=== PATIENT | female | born 1995 | race Caucasian/White ===

== ENCOUNTER 2019-06-28 17:04 | Emergency (ER) | payer OTHER, SELFPAY ==
[2019-06-28 17:15] VITALS: BP 117/79; PULSE 88; RESP 20; TEMP 36.8; O2SAT 100
--- NOTE | 2019-06-28 17:37 | ED.URI ---
HPI - URI/Sore Throat General Chief Complaint: Upper Respiratory Infection Stated Complaint: CONGESTION/SOB Source: patient Mode of arrival: ambulatory Limitations: no limitations History of Present Illness HPI Narrative: 23-year-old female presents to urgent care with complaints of chest congestion, dry cough, body aches and intermittent wheezing for the past 3 days. Patient reports that she had a fever 2 to 3 days ago but that has since resolved. Patient denies chills, nausea, vomiting, diarrhea, sore throat or ear pain. Patient denies sick contacts. Patient denies recent travel. Patient has been taking oupx-trd-dxxmfmr TheraFlu with minimal relief. MD elicited complaint: cough Onset (ago): day(s) (3) Consistency: constant Able to tolerate fluids by mouth: Yes Exacerbating factors: nothing Relieving factors: nothing Related Data Home Medications Medication Instructions Recorded Confirmed Control Pills 06/28/19 Allergies Allergy/AdvReac Type Severity Reaction Status Date / Time amoxicillin Allergy Rash Verified 06/28/19 17:22 Penicillins Allergy Rash Verified 06/28/19 17:22 sulfamethoxazole Allergy Hives Verified 06/28/19 17:21 [From Bactrim] trimethoprim [From Bactrim] Allergy Hives Verified 06/28/19 17:21 Review of Systems Review of Systems: All systems reviewed & are unremarkable except as noted in HPI and below Constitutional: Constitutional: Denies chills and Denies fever(s) ENT: Denies dysphagia, Denies dizziness, Denies epistaxis and Denies sore throat Cardiovascular: Cardiovascular: Denies chest pain, Denies rapid heart rate and Denies radiating jaw, neck or arm pain Respiratory: Respiratory: Reports chest congestion, Reports cough, Denies dyspnea and Reports wheezing Gastrointestinal: Gastrointestinal: Denies constipation, Denies diarrhea, Denies nausea and Denies vomiting Neurologic: Denies dizziness, Denies syncope, Denies headache(s) and Denies weakness PMF Social History Social History (Updated 06/28/19 @ 17:38 by Vanita Gonzalez APN) Smoking status: Never smoker Exam Const: General: healthy appearing, no acute distress and alert Orientation/consciousness: patient oriented x3 Limitations: no limitations HENMT: Head: normal to inspection Ears: external ears normal and TM's normal bilaterally General nose exam: Normal nares present Face and sinus: sinuses nontender Mouth: Yes Normal oral and palatal mucosa present and Yes moist mucous membranes Throat: posterior oropharynx normal and uvula midline Neck: Neck: normal visual inspection Resp: Effort & Inspection: normal respiratory effort and not labored Auscultation: clear to auscultation bilaterally, no crackles, no rales, no rhonchi, no wheezes and lung sounds not diminished Cardio: Rate: regular rate Rhythm: regular rhythm Heart sounds: no murmurs Skin: General skin exam: normal color Rashes: no rashes Neuro: General: patient oriented x3, moves all extremities and no meningeal signs Extrem: General: normal to inspection Psych: Appearance: grossly normal Mental Status: mental status grossly normal Affect: normal affect Attitude: cooperative Course Vital Signs Vital signs: Vital Signs Temperature 36.8 C 06/28/19 17:15 Pulse Rate 88 06/28/19 17:15 Respiratory Rate 06/28/19 17:15 Blood Pressure 117/79 06/28/19 17:15 Pulse Oximetry 100 06/28/19 17:15 Temperature 36.8 C 06/28/19 17:15 Pulse Rate 88 06/28/19 17:15 Respiratory Rate 20 06/28/19 17:15 Blood Pressure 117/79 06/28/19 17:15 Pulse Oximetry 100 06/28/19 17:15 MDM - URI/Sore Throat MDM Narrative Medical decision making narrative: Patient agrees to take medications as prescribed. Patient agrees to follow-up with primary care provider if symptoms not improved. Patient agrees to proceed to the emergency room if symptoms worsen Lab Data Labs: Influenza A Screen Negative Reference
== END 2019-06-28 17:48 | disposition home or self-care (01) ==
PROVIDERS: Emergency Provider Nurse Practitioner Family
DX: J40 Bronchitis, not specified as acute or chronic (principal)
CPT/HCPCS: 87804; 99213; G0463

== ENCOUNTER 2022-05-26 11:05 | Outpatient (CLI) | payer OTHER, SELFPAY ==
[2022-05-26 12:36] LABS: Basophils Percent Auto 0.3 % (0.2-1.2); Eosinophils Absolute Auto 0.1 K/mm3 (0-0.3); Eosinophils Percent Auto 0.4 % (0-4.4); Hematocrit 38.8 % (37.0-47.0); Hemoglobin 13.1 g/dL (12.0-15.0); Immature Granulocyte Absolute 0.07 K/mm3 (0.00-0.031); Immature Granulocyte Percent A 0.5 % (0-0.5); Lymphocytes Absolute Auto 1.24 K/mm3 (0.9-3.2); Lymphocytes Percent Auto 9.1 % (18.3-44.2); Mean Corpuscular HGB Conc 33.8 g/dl (32-36); Mean Corpuscular Hemoglobin 28.9 pg (26-34); Mean Corpuscular Volume 85.5 fl (80-100); Mean Platelet Volume 9.2 fl (7.4-10.4); Monocytes Absolute Auto 0.6 K/mm3 (0.1-0.6); Monocytes Percent Auto 4.5 % (2.6-8.5); Neutrophils Absolute Auto 11.7 K/mm3 (1.3-6.7); Neutrophils Percent Auto 85.2 % (45.5-73.1); Platelet Count Result 292 k/mm3 (150-375); Red Blood Count 4.54 M/mm3 (4.2-5.4); Red Cell Distribution Width 13.7 % (11.5-14.5); White Blood Count 13.7 K/mm3 (4.5-10.0)
[2022-05-26 12:46] LABS: Glucose 1 Hour PP 50gm Dose 78 mg/dL
[2022-05-26 13:27] LABS: HIV 1/2 Ab P24 Ag Result Negative (Negative)
[2022-05-26 13:53] LABS: Hepatitis B Surface Antigen Negative (Negative)
== END 2022-05-26 11:06 | disposition home or self-care (01) ==
PROVIDERS: PCP Obstetrics & Gynecology; Visit Provider Obstetrics & Gynecology
DX: N94.89 Other specified conditions associated with female genital organs and menstrual cycle (principal); Z34.90 Encounter for supervision of normal pregnancy, unspecified, unspecified trimester
CPT/HCPCS: 36415; 82947; 85025; 86703; 87086; 87088; 87340; G0432

== ENCOUNTER 2022-08-07 14:21 | Outpatient (RCR) | payer OTHER, MEDICAID, SELFPAY ==
--- NOTE | ~2022-08-07 | US_ITS ---
EXAMINATION: US OB BPP wo non-stress DATE: 08/07/2022 15:41 INDICATION: Biophysical profile, third trimester TECHNIQUE: Real-time pelvic ultrasound was performed. The interpreting radiologist was not present fo r the study. COMPARISON: None. FINDINGS: There is a single living fetus in vertex presentation. The placenta is anterior. heart rate is 148 beats per minute (bpm). Biophysical profile performed by the technologist: breathing (30 sec sustained breathing in 30 minutes): 2 out of 2 movement (3 gross body movements in 30 minutes): 2 out of 2 tone (one episode of tezjysp-aqicpyqii-rjgrrjx limb movement): 2 out of 2 Amniotic fluid pocket (2 cm): 2 out of 2 Total score: 8 out of 8 IMPRESSION: 1. Single living fetus in vertex presentation. 2. Biophysical profile 8 out of 8. Reviewed, dictated and finalized at location L.
[2022-08-07 15:07] VITALS: BP 116/83; PULSE 76
--- NOTE | 2022-08-07 15:39 | PC.NURSE ---
Dr. Lauren informed NST is reactive and BPP 12/09. OK to discharge to home.
== END 2022-09-29 18:27 | disposition home or self-care (01) ==
LOC: ANHOBOP 14:21
PROVIDERS: PCP Family Medicine Sports Medicine; Visit Provider Obstetrics & Gynecology
DX: O48.0 Post-term pregnancy (principal); Z3A.40 40 weeks gestation of pregnancy
CPT/HCPCS: 59025; 76819

== ENCOUNTER 2022-08-10 17:22 | Inpatient (IN) | payer OTHER, MEDICAID, SELFPAY ==
[2022-08-10] VITALS (98 sets, daily range): BP systolic 104–141; BP diastolic 51–87; PULSE 64–109; TEMP 36.4–38.1; O2SAT 98–100; BMI 27.8
[2022-08-10 18:01] LABS: Basophils Absolute Auto 0.1 K/mm3 (0.0-0.1); Basophils Percent Auto 0.3 % (0.2-1.2); Eosinophils Percent Auto 0.1 % (0-4.4); Hematocrit 44.3 % (37.0-47.0); Immature Granulocyte Absolute 0.12 K/mm3 (0.00-0.031); Immature Granulocyte Percent A 0.7 % (0-0.5); Lymphocytes Absolute Auto 1.19 K/mm3 (0.9-3.2); Lymphocytes Percent Auto 6.8 % (18.3-44.2); Mean Corpuscular HGB Conc 33.9 g/dl (32-36); Mean Corpuscular Hemoglobin 28.2 pg (26-34); Mean Corpuscular Volume 83.3 fl (80-100); Mean Platelet Volume 10.5 fl (7.4-10.4); Monocytes Absolute Auto 0.7 K/mm3 (0.1-0.6); Monocytes Percent Auto 4.2 % (2.6-8.5); Neutrophils Absolute Auto 15.4 K/mm3 (1.3-6.7); Neutrophils Percent Auto 87.9 % (45.5-73.1); Platelet Count Result 307 k/mm3 (150-375); Red Blood Count 5.32 M/mm3 (4.2-5.4); Red Cell Distribution Width 14.2 % (11.5-14.5); White Blood Count 17.5 K/mm3 (4.5-10.0)
[2022-08-10] MEDS: LACTATED RINGERS 1,000 ML 125 ML IV CONT ×2 (18:11→18:56)
[2022-08-10] MEDS: ceFAZolin 2 GM/D5W 50 ML 2 GM/50 ML BAG IVPB (18:11)
--- NOTE | 2022-08-10 18:35 | WPDANESEPP ---
Anes - Eval Pre Procedure Procedure: labor epidural Date/Time: 08/10/22 18:35 Surgeon: britni Preop Diagnosis: pain during labor Pre Op Diagnosis: Labor Patient Data Age: 26 Gender: F Height: Weight: Last Vital Signs Temp 36.4 C L 08/10/22 18:01 Pulse 76 08/10/22 18:31 BP 141/84 H 08/10/22 18:31 Pulse Ox 100 08/10/22 18:33 Allergies Allergy/AdvReac Type Severity Reaction Status Date / Time amoxicillin Allergy Rash Verified 08/04/22 09:15 latex Allergy Rash Verified 08/04/22 09:15 Penicillins Allergy Rash Verified 08/04/22 09:15 sulfamethoxazole Allergy Hives Verified 08/04/22 09:15 [From Bactrim] trimethoprim [From Bactrim] Allergy Hives Verified 08/04/22 09:15 Home Medications Medication Instructions Recorded Confirmed Type albuterol sulfate 90 mcg/actuation 1 inh inhalation Q4H 05/19/22 08/10/22 History aerosol inhaler (ProAir HFA) prenat.vits,carlos,muq-wszy-sajuo 1 tablet PO HS 07/11/22 08/10/22 History Laboratory Tests 08/10/22 08/10/22 17:53 17:53 WBC 17.5 K/mm3 H K/mm3 (4.5-10.0) RBC 5.32 M/mm3 M/mm3 (4.2-5.4) Hgb 15.0 g/dL g/dL (12.0-15.0) Hct 44.3 % % (37.0-47.0) MCV 83.3 fl fl (80-100) MCH 28.2 pg pg (26-34) MCHC 33.9 g/dl g/dl (32-36) RDW 14.2 % % (11.5-14.5) Plt Count 307 k/mm3 k/mm3 (150-375) MPV 10.5 fl H fl (7.4-10.4) Immature Gran % (Auto) 0.7 % H % (0-0.5) Neut % (Auto) 87.9 % H % (45.5-73.1) Lymph % (Auto) 6.8 % L % (18.3-44.2) [place] % (Auto) 4.2 % % (2.6-8.5) Eos % (Auto) 0.1 % % (0-4.4) Baso % (Auto) 0.3 % % (0.2-1.2) Lymph # (Auto) 1.19 K/mm3 K/mm3 (0.9-3.2) [place] # (Auto) 0.7 K/mm3 H K/mm3 (0.1-0.6) Eos # (Auto) 0.0 K/mm3 K/mm3 (0-0.3) Baso # (Auto) 0.1 K/mm3 K/mm3 (0.0-0.1) Abs Immat Gran (auto) 0.12 K/mm3 H K/mm3 (0.00-0.031) Absolute Neuts (auto) 15.4 K/mm3 H K/mm3 (1.3-6.7) Absolute Nucleated RBC 0.0 K/mm3 K/mm3 (0.0-0.012) Nucleated RBC % 0.0 % % (0.0-0.2) RPR Pending Patient hx anesthesia problems: none Family hx anesthesia problems: none Results Review: All pre-operative results and documents have been reviewed as part of the pre-operative evaluation. [facility] Past Medical History Medical History Abnormal Pap smear of cervix 11/26/2017 Ascus +Hpv Anxiety rx meds Seizures (05/27/20) started 05/27/2020 no meds Suppression of menstruation Family History Family History Grandparent Esophageal cancer maternal grandmother Social History Social History Smoking status: Never smoker Alcohol intake: former Alcohol use details: ocassional Substance use: never Substance use type: marijuana Other substance usage details: 1 x week Last use: 05/2021 Living arrangements: other Additional living arrangements comments: boyfreind Occupation/Education: occupation Additional occupation/education comments: orthodontic tech Gender identity (if verbalized by the patient): Female Sexual Orientation (if Verbalized by the Patient): Straight or Heterosexual Spiritual care concerns: No Exam Day of Procedure 08/10/22 18:35
--- NOTE | 2022-08-10 19:01 | LDADM ---
This patient, Sarina Wetzel, was admitted to Labor/Delivery/Recovery 105 on 08/10/22 at 17:22. Plans for labor, pain management and were discussed with patient. Patient/family oriented to hospital policies and general routines including ID bracelet, bed and alarms, visiting hours, pain management, procedures, bathroom and other care routines, personal items, smoking policy, room service/diet and guest tray routines, infant security routines, and visiting hours. Patient/Family are encouraged to report perceived risks to care and to ask questions if they do not understand what they are told or what they should do. See OBIX for further documentation.
[2022-08-10] MEDS: ceFAZolin 1 GM/NS 50 ML 1 GM/50 ML BAG IVPB (23:55)
[2022-08-11] VITALS (131 sets, daily range): BP systolic 76–153; BP diastolic 41–109; PULSE 18–163; RESP 16–18; TEMP 36.4–38.1; O2SAT 78–100
--- NOTE | 2022-08-11 05:44 | WPDHPUPDATE1 ---
History and Physical Update Update Date/Time: 08/11/22 05:44 26 yo G1 who presents in labor. Reports regular contractions. Denies any leakage of fluid or vaginal bleeding. History and Physical has been reviewed, including an updated exam of the patient. There are NO changes in the patient's condition. Risks, benefits, and alternatives have been discussed and questions answered. Patient agrees to proceed with procedure. A/P: admit to L&D routine admission orders Rh+ GBS +, abs in labor continuous EFM expectant management
--- NOTE | 2022-08-11 05:45 | P.PCNOB_ITS ---
OB - Delivery Note Procedure Procedure: Patient pushed for a spontaneous vaginal delivery. Pt was noted to have a loose nuchal cord that was reduce on the perineum. The fetus was delivered atraumatically and placed on the maternal abdomen. The cord was clamped and cut after 1 minute of life. The cord was double clamped and cut and a segment of cord was collected for cord gases. Cord blood was collected for blood type and Coomb's testing. The placenta delivered spontaneously and was noted to be intact. The perineum was inspected and there were no lacerations noted. The uterus was firm and good hemostasis was noted. The patient and fetus were stable in the delivery room. Delivery monitor: External FHT Route of delivery: Episiotomy description: None Specimen: No Quantitative Blood Loss (ml): 300 Anesthesia type: Epidural Disposition: Floor () Complications: No immediate complications [place] Baby Date of : 08/11/22 Time of : 05:33 Weeks of gestation at delivery: 40 Infant gender: Female presentation: vertex position: Right Occiput Anterior Placenta delivery description: Spontaneous Cord Vessel Description: 3 Vessels and Nuchal Cord score one minute: 8 score five minutes: 9 AMG Delivery Billing Delivery Delivery: Delivery Charge
[2022-08-11] MEDS: OXYTOCIN 30 UNITS/NS 500 ML 30 UNITS/500 ML BAG 125 UNITS IV CONT (06:14)
[2022-08-11] MEDS: IBUPROFEN 600 MG TABLET PO ×2 (06:50→16:34)
[2022-08-11 08:18] LABS: Rapid Plasma Reagin Non-Reactive (NonReactive)
[2022-08-11] MEDS: ACETAMINOPHEN 325 MG TABLET 650 MG PO ×2 (08:27→20:21)
[2022-08-11] MEDS: WITCH HAZEL 40 PADS 1 PAD TOPICAL (08:28)
[2022-08-11] MEDS: DOCUSATE SODIUM 100 MG CAPSULE PO (08:28)
[2022-08-11] MEDS: MULTIVIT/MIN/PREN/FOL AC/IRON TABLET 1 TAB PO (08:28)
[2022-08-11] MEDS: LANOLIN (LANSINOH) 7.5 GM CREAM 1 APPLIC TOPICAL (08:28)
[2022-08-11] MEDS: BENZOCAINE 20% AER SPR (*SP) 56 GM CAN 1 SPRAY TOPICAL (08:28)
--- NOTE | 2022-08-11 10:26 | PC.NURSE ---
Patient transferred to post room #286 via ( W/C ). Support person present. Oriented to unit, room, information board, rooming in, admission packet and security measures. Patient verbalizes understanding.
[2022-08-12] MEDS: IBUPROFEN 600 MG TABLET PO (00:54)
[2022-08-12 05:07] VITALS: BP 119/76; PULSE 63; RESP 16; TEMP 36.6; O2SAT 99
[2022-08-12 05:24] LABS: Hematocrit 35.5 % (37.0-47.0); Hemoglobin 11.5 g/dL (12.0-15.0)
--- NOTE | 2022-08-12 07:09 | PM.OBDSVD ---
DS: Admitting Diagnosis Discharge Date 08/12/22 Admitting Diagnosis Intrauterine at term DS: Discharge Diagnosis Discharge Diagnosis (1) : Code(s): Z34.90 - Encounter for supervision of normal , unspecified, unspecified trimester Status: Acute OB - DS: Summary OB Procedures : None OB Procedures Intrapartum: Spontaneous Vag Delivery OB Procedures: : None Status at Discharge Functional status at discharge: independent ambulation Overall status at discharge: patient is back to baseline Time Spent with Patient Time attestation: Total time spent providing and/or coordinating discharge services: Time spent: Less than 30 minutes Exam Const: General: comfortable and no acute distress Resp: Effort & Inspection: normal respiratory effort Auscultation: clear to auscultation bilaterally Cardio: Rate: regular rate GI: GI Palp: Yes Soft to palpation Auscultation: normal bowel sounds Other: Fundus firm below umbilicus Psych: Appearance: grossly normal Mental Status: mental status grossly normal Affect: normal affect DS: Data Data Completed and Pending Labs on day of discharge: Labs from last 24 hours 08/12/22 08/10/22 05:15 17:53 Hgb 11.5 L D Hct 35.5 L RPR Non-reactive Discharge Plan Discharge Discharging Clinician: Fred Lauren Patient Disposition: Home, Self-Care Activity: as tolerated and pelvic rest Diet: regular Patient Instructions: Antibiotic Form, Vaginal Delivery (DC) Stand Alone Forms: General Discharge Information Follow-up/Referrals: Carlyle Beatty MD [Physician] - Discharge Medications: New ibuprofen 600 mg tablet 600 mg PO Q6H PRN (Reason: pain) Qty: 30 0RF acetaminophen 500 mg tablet 500 mg PO Q6H PRN (Reason: pain) Qty: 30 0RF Continued albuterol sulfate [ProAir HFA] 90 mcg/actuation HFA aerosol inhaler 1 inh inhalation Q4H #2 Tablet 1 tablet PO HS Date of admission: 08/10/22 17:22 Primary Care Provider: Barbara,Shahid Johnson Admitting Provider: Carlyle Beatty Attending physician on admission: Carlyle Beatty Condition: Stable
[2022-08-12 08:15] VITALS: BP 123/75; PULSE 63; RESP 16; TEMP 36.9; O2SAT 99
[2022-08-12] MEDS: DOCUSATE SODIUM 100 MG CAPSULE PO (08:47)
[2022-08-12] MEDS: MULTIVIT/MIN/PREN/FOL AC/IRON TABLET 1 TAB PO (08:48)
[2022-08-12] MEDS: TETANUS,DIPHTHERIA,AC PERTUSSIS ADULT (0.5 ML) BOOSTRIX IM (08:48)
[2022-08-12] MEDS: MEASLES,MUMPS,RUBELLA VACCINE 0.5 ML VIAL SUB-Q (12:55)
--- NOTE | 2022-08-12 16:00 | PC.NURSE ---
[phone] Introductions were made, then consulted with patient to assess needs related to . Mother led the conversation with her?plans to feed?her infant and the?experience so far. is not in the room at this time. Resources provided for inpatient and outpatient services with name written on the white board. Mother voiced understanding of information and will call if there is a request for assistance. Primary RN brings into the room and helps prepare for skin to skin. [phone] Mother works well with her with encouragement and education. Encouraged understanding of the benefits of skin to skin (demonstrating unwrapping infant and placing upright on her chest), stimulating with massage touch, changing positions to encourage wakefulness, how to watch for early feeding cues, responsive feeding, feeding on demand (aiming for 8-12 times in 24 hours, about every 2-3 hours), milk production, building/maintaining a milk supply, duration of feeding, signs of adequate intake/output and how to record on the feeding sheet. Reviewed positioning and ear, shoulder, hip alignment, supporting the breast to facilitate a deep latch, asymmetrical latch (off-center), leading with the chin with a big, open, wide gape and body close to mother. latched optimally to the left breast in cross cradle position, then mother switched to cradle with minimal assistance from LC. Education given to mother of how to visualize suck/swallow ratios and listen for drinking at the breast. was able to maintain latch without discomfort to mother. Nipple care reviewed with optimal latch and good positioning. Reminding mother of comfort measures of healing with a warm and wet washcloth to rinse breast, then leave open to air-dry as needed. Reviewed good handwashing when or touching the breast/nipples to prevent infection. Resources used to facilitate learning were used with the mom and baby guide. Mother voiced understanding of skin to skin, stimulating with massage touch, responsive feedings, hand expressed colostrum, talking to infant to encourage if it has been 2 -2.5 hours since the start of the last , to call if infant does not latch, or if there is discomfort with . Resources provided for inpatient/outpatient with business card and the mom/baby guide. Mother voiced understanding of information, demonstrated learning and will call if there is a request for assistance. Reported to primary RN.
--- NOTE | 2022-08-12 17:43 | PC.NURSE ---
1200 Patient viewed the discharge video Mother & Baby Care, The First Two Weeks . Patient was given the opportunity and encouraged to ask questions. Patient verbalized understanding of information shared and has been given the mother/baby guide for home reference.
[2022-08-14 09:30] VITALS: BP 119/76; PULSE 78; RESP 18; TEMP 36.8; O2SAT 99
== END 2022-08-12 14:20 | disposition home or self-care (01) | DRG 806 ==
LOC: ANHOB2 08-12 14:12 → ANHLDR 08-13 08:16 → ANHOB2 08-13 08:16
PROVIDERS: Admitting Provider Student in an Organized Health Care Education/Training Program; PCP Family Medicine Sports Medicine; Visit Provider Student in an Organized Health Care Education/Training Program
DX: O99.824 Streptococcus B carrier state complicating childbirth (principal); O75.2 Pyrexia during labor, not elsewhere classified; Z37.0 Single live birth; O77.0 Labor and delivery complicated by meconium in amniotic fluid; O69.81X0 Labor and delivery complicated by cord around neck, without compression, not applicable or unspecified; Z3A.40 40 weeks gestation of pregnancy
CPT/HCPCS: 36415; 85014; 85018; 85025; 86592; 86850; 86900; 86901; 90710; 90715; A9270; J0131; J0690; J2590; J2795; J7120

== ENCOUNTER 2023-12-30 13:34 | Outpatient (CLI) | payer OTHER, SELFPAY ==
[2023-12-30 14:30] LABS: Hematocrit 38.9 % (37.0-47.0); Hemoglobin 13.6 g/dL (12.0-15.0); Mean Corpuscular Hemoglobin 30.2 pg (26-34); Mean Corpuscular Volume 86.3 fl (80-100); Mean Platelet Volume 9.1 fl (7.4-10.4); Platelet Count Result 268 k/mm3 (150-375); Red Blood Count 4.51 M/mm3 (4.2-5.4); Red Cell Distribution Width 15.3 % (11.5-14.5); White Blood Count 8.8 K/mm3 (4.5-10.0)
[2023-12-30 14:46] LABS: Band Neutrophils Percent 2 % (0-6); Lymphocytes Absolute Manual 1.14 K/mm3 (1.1-4.5); Monocytes Absolute Manual 0.08 K/mm3 (0.1-0.90); Monocytes Percent Manual 1 % (3-9); Neutrophils Absolute Manual 7.56 K/mm3 (1.7-7.2); Neutrophils Percent Manual 84 % (46-73); Platelet Estimate Adequate (Adequate); Total Cells Counted 100
[2023-12-30 14:47] LABS: Anisocytosis 2+; Schistocytes None Seen
[2023-12-30 15:06] LABS: HIV 1/2 Ab P24 Ag Result Negative (Negative)
[2023-12-30 15:41] LABS: Hepatitis B Surface Antigen Negative (Negative); Rubella IgG Antibody 63.8 IU/ML
[2023-12-31 10:49] LABS: Rapid Plasma Reagin Non-Reactive (NonReactive)
[2023-12-31 12:23] LABS: Varicella IgG Antibody <135.00 index
[2023-12-31 13:29] LABS: CMV IgG Antibody <0.60 U/mL
== END 2023-12-30 13:35 | disposition home or self-care (01) ==
LOC: ANHLAB 13:35
PROVIDERS: PCP Family Medicine Sports Medicine; Visit Provider Obstetrics & Gynecology
DX: N91.2 Amenorrhea, unspecified (principal)
CPT/HCPCS: 36415; 84702; 85025; 86592; 86644; 86703; 86747; 86762; 86787; 86850; 86900; 86901; 87086; 87340; G0432

== ENCOUNTER 2024-04-18 12:57 | Outpatient (CLI) | payer OTHER, SELFPAY ==
[2024-04-18 14:31] LABS: Basophils Absolute Auto 0.1 K/mm3 (0.0-0.1); Basophils Percent Auto 0.4 % (0.2-1.2); Eosinophils Absolute Auto 0.1 K/mm3 (0-0.3); Eosinophils Percent Auto 0.8 % (0-4.4); Hematocrit 37.8 % (37.0-47.0); Hemoglobin 12.8 g/dL (12.0-15.0); Immature Granulocyte Absolute 0.13 K/mm3 (0.00-0.031); Immature Granulocyte Percent A 1.1 % (0-0.5); Lymphocytes Percent Auto 11.6 % (18.3-44.2); Mean Corpuscular HGB Conc 33.9 g/dl (32-36); Mean Corpuscular Hemoglobin 30.1 pg (26-34); Mean Corpuscular Volume 88.9 fl (80-100); Mean Platelet Volume 9.5 fl (7.4-10.4); Monocytes Absolute Auto 0.7 K/mm3 (0.1-0.6); Monocytes Percent Auto 5.4 % (2.6-8.5); Neutrophils Absolute Auto 9.7 K/mm3 (1.3-6.7); Neutrophils Percent Auto 80.7 % (45.5-73.1); Platelet Count Result 274 k/mm3 (150-375); Red Blood Count 4.25 M/mm3 (4.2-5.4); Red Cell Distribution Width 13.2 % (11.5-14.5); White Blood Count 12.1 K/mm3 (4.5-10.0)
[2024-04-18 14:41] LABS: Glucose 1 Hour PP 50gm Dose 115 mg/dL
[2024-04-18 15:20] LABS: HIV 1/2 Ab P24 Ag Result Negative (Negative)
== END 2024-04-18 12:58 | disposition home or self-care (01) ==
LOC: ANHLAB 12:59
PROVIDERS: PCP Family Medicine Sports Medicine; Visit Provider Obstetrics & Gynecology
DX: Z34.90 Encounter for supervision of normal pregnancy, unspecified, unspecified trimester (principal)
CPT/HCPCS: 36415; 82947; 85025; 86703; G0432

== ENCOUNTER 2024-06-09 15:44 | Inpatient (IN) | payer OTHER, SELFPAY ==
[2024-06-09] VITALS (69 sets, daily range): BP systolic 80–126; BP diastolic 49–95; PULSE 31–146; RESP 16; TEMP 36.6–37.6; O2SAT 71–100; BMI 28.2
--- OUTSIDE RECORDS SUMMARY | 2024-06-09 16:05 | XMS_ITS | Referral Summary ---
Author Organization [address] Address [address] [place] [address] Care Team Providers Care Jacquard Card Cutter Name Role Phone Shahid Ruiz MD Primary Care Provider [phone] Allergies Active Allergy Reactions Criticality Noted Date Comments Sulfamethoxazole-Trimethoprim Hives,Rash Medium 2022 Penicillins Hives,Rash Medium 08/28/2022 Medications vit 27-kfex-oktmh-dh a 27 mg iron- 1 mg-150 mg combo pack Take by mouth Active acetaminophen (TYLENOL) 500 mg tablet Take by mouth every 6 (six) hours as needed 08/12/2022 Active Active Problems No known active problems Social History Tobacco Use Types Packs/Day Years Used Date Smoking Tobacco: Never Smokeless Tobacco: Never Personal Safety Answer Date Recorded Getting School Help Needed Not on file 07/04 Comments Unknown Sex and Gender Information Value Date Recorded Sex Assigned at Not on file Legal Sex Female 5:19 PM CDT Gender Identity Not on file Sexual Orientation Not on file Last Filed Vital Signs Vital Sign Reading Time Taken Comments Blood Pressure 106/68 02/24/2023 8:16 AM CDT Pulse 121 02/24/2023 8:16 AM CDT Temperature 38.1 C (100.5 F) 02/24/2023 8:16 AM CDT Respiratory Rate 16 02/24/2023 8:16 AM CDT Oxygen Saturation 97% 02/24/2023 8:16 AM CDT Inhaled Oxygen Concentration - - Weight 60.1 kg (132 lb 9.6 oz) 02/24/2023 8:16 A M CDT Height 160 cm (5' 3 ) 02/24/2023 8:16 AM CDT Body Mass Index 23.49 02/24/2023 8:16 AM CDT Plan of Treatment Not on file Insurance [facility] Care Teams Jacquard Card Cutter Relationship Specialty Start Date End Date Shahid Ruiz MD [address] [place] [address] PCP - General Family Medicine 08/28/22
--- OUTSIDE RECORDS SUMMARY | 2024-06-09 16:05 | XMS_ITS | Clinical Summary ---
Author Organization [address] Address [address] [place] [address] Care Team Providers Care Station Manager Name Role Phone Shahid Ruiz MD Primary Care Provider [phone] Allergies Active Allergy Reactions Criticality Noted Date Comments Sulfamethoxazole-Trimethoprim Hives,Rash Medium 2022 Penicillins Hives,Rash Medium 08/28/2022 Medications vit 68-okzm-tiqua-dh a 27 mg iron- 1 mg-150 mg [...] on file Sexual Orientation Not on file Obstetrics History Last Filed Vital Signs Vital Sign Reading [...] 02/24/2023 8:16 AM CDT Plan of Treatment Health Maintenance Due Date Last Done Comments Cervical Cancer Screening 1996 Depression Screening 1996 Hepatitis C Screening 1996 Varicella Vaccines (1 of 2 - 13+ 2-dose series) 2009 Hepatitis B Screening 2014 Regular Well Visit/Exam 18-64 2014 Influenza Vaccine (#1) 2024 DTaP/Tdap/Td Vaccine (2 - Td or Tdap) 08/12/2032 08/12/2022 HPV Vaccines Aged Out No longer eligi ble based on patient's age to complete this topic Pneumococcal vaccine <65 Aged Out No longer eligible based on patient's age to complete this topic Insurance [facility] Care Teams Station Manager Relationship Specialty Start Date End Date Shahid Ruiz MD [address] [place] [address] PCP - General Family Medicine 08/28/22
[2024-06-09 16:18] LABS: Basophils Absolute Auto 0.1 K/mm3 (0.0-0.1); Basophils Percent Auto 0.4 % (0.2-1.2); Eosinophils Percent Auto 0.2 % (0-4.4); Hematocrit 42.5 % (37.0-47.0); Hemoglobin 14.5 g/dL (12.0-15.0); Immature Granulocyte Percent A 0.5 % (0-0.5); Lymphocytes Absolute Auto 1.95 K/mm3 (0.9-3.2); Lymphocytes Percent Auto 10.1 % (18.3-44.2); Mean Corpuscular HGB Conc 34.1 g/dl (32-36); Mean Corpuscular Hemoglobin 28.7 pg (26-34); Mean Corpuscular Volume 84.2 fl (80-100); Neutrophils Absolute Auto 16.2 K/mm3 (1.3-6.7); Neutrophils Percent Auto 83.8 % (45.5-73.1); Platelet Count Result 303 k/mm3 (150-375); Red Blood Count 5.05 M/mm3 (4.2-5.4); Red Cell Distribution Width 13.7 % (11.5-14.5); White Blood Count 19.3 K/mm3 (4.5-10.0)
[2024-06-09] MEDS: LACTATED RINGERS 1,000 ML 125 ML IV CONT ×2 (16:19→17:21)
--- NOTE | 2024-06-09 16:49 | P.PNAN_ITS ---
Anes - Initial Pre Proc Eval Procedure: labor epidural Date/Time: 06/09/24 16:49 Surgeon: Carlyle Beatty MD Pre Op Diagnosis: labor pain Pre Op Diagnosis: Active Labor Patient Data Age: 28 Gender: F Height: Weight: Last Vital Signs Temp 36.6 C 06/09/24 16:27 Pulse 92 06/09/24 16:48 BP 98/66 L 06/09/24 16:48 Pulse Ox 98 06/09/24 16:46 Allergies Allergy/AdvReac Type Severity Reaction Status Date / Time amoxicillin Allergy Rash Verified 06/08/24 13:38 latex Allergy Rash Verified 06/08/24 13:38 Penicillins Allergy Rash Verified 06/08/24 13:38 sulfamethoxazole (From Allergy Hives Verified 06/08/24 13:38 Bactrim) trimethoprim (From Bactrim) Allergy Hives Verified 06/08/24 13:38 Home Medications ?Medication ?Instructions ?Recorded ?Confirmed ?Type docosahexaenoic acid 200 mg 200 mg PO DAILY #90 caps 12/09/23 06/09/24 Rx capsule ( DHA) citalopram 20 mg tablet 20 mg PO DAILY #90 tabs 04/06/24 06/09/24 Rx RSV vac, preF A and preF B(PF) 120 0.5 ml IM ONCE #1 ea 05/03/24 06/08/24 Rx mcg/0.5 mL IM solution (Abrysvo (PF)) albuterol sulfate 90 mcg/actuation 1 puff inhalation Q4H PRN 05/03/24 06/09/24 Rx aerosol inhaler shortness of breath or wheezing #8.5 grams Laboratory Tests 06/09/24 16:12 WBC 19.3 H K/mm3 (4.5-10.0) RBC 5.05 M/mm3 (4.2-5.4) Hgb 14.5 g/dL (12.0-15.0) Hct 42.5 % (37.0-47.0) MCV 84.2 fl (80-100) MCH 28.7 pg (26-34) MCHC 34.1 g/dl (32-36) RDW 13.7 % (11.5-14.5) Plt Count 303 k/mm3 (150-375) MPV 10.0 fl (7.4-10.4) Immature Gran % (Auto) 0.5 % (0-0.5) Neut % (Auto) 83.8 H % (45.5-73.1) Lymph % (Auto) 10.1 L % (18.3-44.2) [place] % (Auto) 5.0 % (2.6-8.5) Eos % (Auto) 0.2 % (0-4.4) Baso % (Auto) 0.4 % (0.2-1.2) Lymph # (Auto) 1.95 K/mm3 (0.9-3.2) [place] # (Auto) 1.0 H K/mm3 (0.1-0.6) Eos # (Auto) 0.0 K/mm3 (0-0.3) Baso # (Auto) 0.1 K/mm3 (0.0-0.1) Abs Immat Gran (auto) 0.10 H K/mm3 (0.00-0.031) Absolute Neuts (auto) 16.2 H K/mm3 (1.3-6.7) Absolute Nucleated RBC 0.000 K/mm3 (0.0-0.012) Nucleated RBC % 0.0 % (0.0-0.2) RPR Pending HIV 1&2 Ab/P24 Ag 4thGn Pending Patient hx anesthesia problems: none Family hx anesthesia problems: none Results Review: All pre-operative results and documents have been reviewed as part of the pre- operative evaluation. [facility] Past Medical History Medical History Suppression of menstruation Seizures (05/27/20) started 05/27/2020 no meds Anxiety no meds Abnormal Pap smear of cervix 11/26/2017 Ascus +Hpv Family History Family History Grandparent Esophageal cancer maternal grandmother Mother Hypertension Social History Social History Smoking status: Never smoker Second hand tobacco smoke exposure: No Alcohol intake: former Alcohol use details: ocassional Substance use: former Substance use type: marijuana Other substance usage details: 1 x week Last use: 05/2021 Do You Feel Safe in your Home?: Yes Lack of Transportation: No Lack of Food: Never True Current Housing: I Have Housing Concerned About Future Housing: No Difficulty Paying Gas/Electric Bills: No Difficulty Paying for Meds: No Currently Unemployed: No Education: High School Diploma/GED Difficulty w/ Childcare or Family Care: No Living arrangements: with family Additional living arrangements comments: Occupation/Education: other Additional occupation/education comments: stay at home mom Gender identity (if verbalized by the patient): Female Sexual Orientation (if Verbalized by the Patient): Straight or Heterosexual Spiritual care concerns: No Anes - Eval Final PreProcedure Day of Procedure 06/09/24 16:49 Patient weight: normal Lungs: normal air movement Airway: Mallampati scale class 1 Neurological: alert and oriented ASA classification: II Anesthetic plan: proceed Anesthesia type and monitoring: regional epidural and standard monitoring Results Review: All pre-operative results and documents have been reviewed as part of the pre- operative evaluation. Informed Consent: The patient's anesthetic plan and its attendant risks and benefits were discussed with the patient/family/POA. Questions were solicited and answers provided to the satisfaction of the patient/family/POA.
--- NOTE | 2024-06-09 17:03 | LDADM ---
This patient, Sarina Wetzel, was admitted to Labor/Delivery/Recovery 106 on 06/09/24 at 15:44. Plans for labor, pain management and were discussed with patient. Patient/family oriented to hospital policies and general routines including ID bracelet, bed and alarms, visiting hours, pain management, procedures, bathroom and other care routines, personal items, smoking policy, room service/diet and guest tray routines, infant security routines, and visiting hours. Patient/Family are encouraged to report perceived risks to care and to ask questions if they do not understand what they are told or what they should do. See OBIX for further documentation.
[2024-06-09 17:07] LABS: HIV 1/2 Ab P24 Ag Result Negative (Negative)
[2024-06-09 17:18] LABS: Rapid Plasma Reagin Non-Reactive (NonReactive)
--- NOTE | 2024-06-09 18:15 | WPDHPUPDATE1 ---
History and Physical Update Update Date/Time: 06/09/24 18:15 History and Physical has been reviewed, including an updated exam of the patient. There are NO changes in the patient's condition. Risks, benefits, and alternatives have been discussed and questions answered. Patient agrees to proceed with procedure.
--- NOTE | 2024-06-09 18:15 | WPDOBADMIT ---
Obstetrics - Admit Note Admission Note: record reviewed. No pertinent additions to the history and/or any subsequent changes in the physical findings that are not consistent with the expected course of the were found. Additions to the history and/or subsequent changes in the physical findings follow. None.
--- NOTE | 2024-06-09 18:16 | PM.OBPRVD ---
OB - Vaginal Delivery Note Procedure Delivery date: 06/09/24 Intrapartal Events: Other ( meconium stained fluid) Induction method: None Delivery augmentation: Rupture of Membranes Delivery monitor: External FHT and External Uterine Route of delivery: Episiotomy description: None Laceration Description: None Specimen: Yes Quantitative Blood Loss (ml): 350 Anesthesia type: Epidural Disposition: Floor Complications: No immediate complications Narrative: Draped usual manner this procedure. Maternal expulsive efforts readily vertex occiput posterior position. Nuchal cord noted and reduced. Rest difficulty cord clamped, placenta delivered manually. Sweep the uterus revealed no retained membranes or pieces of placenta. Cervix vagina vulva were inspected with no lacerations or tears. there was some uterine atony which resolved with bimanual compression, Pitocin, Methergine. Immediate postop condition of mother and baby both excellent. Baby Gestational Age by Date: 39 gender: Female Weight (pounds): 7 Weight (ounces): 4 presentation: vertex position: Right Occiput Posterior Placenta delivery description: Manual Removal Cord Vessel Description: 3 Vessels, Nuchal Cord and Reduced score one minute: 8 score five minutes: 9
[2024-06-09] MEDS: OXYTOCIN 30 UNITS/NS 500 ML 30 UNITS/500 ML BAG 999 UNITS IV CONT (19:04)
[2024-06-09] MEDS: METHYLERGONOVINE MALEATE 0.2 MG/ML VIAL IM (19:19)
[2024-06-09] MEDS: OXYTOCIN 30 UNITS/NS 500 ML 30 UNITS/500 ML BAG 125 UNITS IV CONT (19:41)
[2024-06-09] MEDS: diphenhydrAMINE HCl INJ 50 MG/ML VIAL 25 MG IV PUSH (20:16)
[2024-06-09] MEDS: WITCH HAZEL 40 PADS 1 PAD TOPICAL (20:20)
[2024-06-09] MEDS: BENZOCAINE 20% AER SPR (*SP) 56 GM CAN 1 SPRAY TOPICAL (20:20)
[2024-06-09] MEDS: ACETAMINOPHEN 325 MG TABLET 650 MG PO (22:45)
[2024-06-09] MEDS: IBUPROFEN 600 MG TABLET PO (22:45)
--- NOTE | 2024-06-09 23:48 | PC.NURSE ---
2348- Pt admitted to room 280 at 2150. At 2330, temp 100.7 oral, this RN spoke with Dr. Kim, stated to monitor pt, give tylenol motrin (given at 2245), if temp reaches 101.0 to call back for further orders.
[2024-06-10 00:51] VITALS: BP 95/54; PULSE 71; RESP 14; TEMP 36.8; O2SAT 100
[2024-06-10] MEDS: DIBUCAINE 1% OINTMENT 30 GM TUBE 1 APPLIC TOPICAL (02:15)
[2024-06-10 05:06] VITALS: BP 106/69; PULSE 70; RESP 14; TEMP 37.3; O2SAT 100
[2024-06-10] MEDS: ACETAMINOPHEN 325 MG TABLET 650 MG PO ×3 (05:41→19:01)
[2024-06-10] MEDS: IBUPROFEN 600 MG TABLET PO ×3 (05:41→19:02)
[2024-06-10 06:02] LABS: Hematocrit 38.3 % (37.0-47.0); Hemoglobin 11.9 g/dL (12.0-15.0)
[2024-06-10] MEDS: MULTIVIT/MIN/PREN/FOL AC/IRON TABLET 1 TAB PO (08:50)
[2024-06-10] MEDS: CITALOPRAM HYDROBROMIDE 20 MG TABLET PO (08:50)
--- NOTE | 2024-06-10 09:30 | PC.NURSE ---
Introductions were made, then consulted with patient to assess needs related to . Discussed with mother her?plans to feed?her and the?experience so far. Baby has been latching okay but tends to be gaggy at the beginning of feeds. Mom is supplementing once to see if will have a wet diaper. Resources provided for inpatient and outpatient services with the feeding sheet, mom/baby guide and name/number written on the communication board. Mother voiced understanding of information and will call if there is a request for assistance. Reported to the Primary RN.
[2024-06-10 10:20] VITALS: BP 117/64; PULSE 64; RESP 18; TEMP 36.4; O2SAT 99
--- NOTE | 2024-06-10 10:41 | WPDANLDPN2 ---
Anes-Prog Note L&D Date/Time: 06/10/24 10:41 Comfortable throughout: labor and delivery Neuraxial method: epidural Epidural/Spinal procedure site: clean & non-tender Neuro status: Neuro function grossly intact. Cardiovascular status: normal Respiratory status: normal Airway patency: baseline Mental status: baseline Post-Op hydration status: normal Vital Signs: Last Vital Signs Temp 97.6 F 06/10/24 10:20 Pulse 64 06/10/24 10:20 Resp 18 06/10/24 10:20 BP 117/64 06/10/24 10:20 Pulse Ox 99 06/10/24 10:20 O2 Del Method Room Air 06/10/24 08:00 Pain score (VAS): 0/10 I/O: Intake & Output 06/09/24 06/10/24 06/10/24 23:59 07:59 15:59 Intake Total 1000 Output Total 350 Balance 650 Post-procedural complaints: none Patient feedback: Patient satisfied with anesthetic care.
--- NOTE | 2024-06-10 13:25 | PM.OBDSVD ---
DS: Admitting Diagnosis Discharge Date 06/11/2024 Admitting Diagnosis DS: Discharge Diagnosis Discharge Diagnosis (1) , delivered: Code(s): O80 - Encounter for full-term uncomplicated delivery Status: Acute OB - DS: Summary OB Procedures : None OB Procedures Intrapartum: Spontaneous Vag Delivery OB Procedures: : None Peripartum Data Laceration Description: None Episiotomy description: None Time Spent with Patient Time attestation: Total time spent providing and/or coordinating discharge services: DS: Data Data Completed and Pending Pending studies at discharge: Pending at discharge 06/10/24 11:38 Surgical [PTH] Routine Labs on day of discharge: Labs from last 24 hours 06/10/24 06/09/24 04:48 16:12 WBC 19.3 H RBC 5.05 Hgb 11.9 L 14.5 Hct 38.3 42.5 MCV 84.2 MCH 28.7 MCHC 34.1 RDW 13.7 Plt Count 303 MPV 10.0 Immature Gran % (Auto) 0.5 Neut % (Auto) 83.8 H Lymph % (Auto) 10.1 L [place] % (Auto) 5.0 Eos % (Auto) 0.2 Baso % (Auto) 0.4 Lymph # (Auto) 1.95 [place] # (Auto) 1.0 H Eos # (Auto) 0.0 Baso # (Auto) 0.1 Abs Immat Gran (auto) 0.10 H Absolute Neuts (auto) 16.2 H Absolute Nucleated RBC 0.000 Nucleated RBC % 0.0 RPR Non-reactive HIV 1&2 Ab/P24 Ag 4thGn Negative Blood Type B Positive Antibody Screen Negative Discharge Plan Discharge Discharging Clinician: Carlyle Beatty Activity: as tolerated Diet: as tolerated Patient Language: [place] Discharge Medications: New ibuprofen 600 mg Tablet 600 mg PO Q6H PRN (Reason: Cramping) Qty: 30 0RF Continued DHA 200 mg capsule 200 mg PO DAILY Qty: 90 5RF citalopram 20 mg tablet 20 mg PO DAILY Qty: 90 0RF albuterol sulfate 90 mcg/actuation HFA aerosol inhaler 1 puff inhalation Q4H PRN (Reason: shortness of breath or wheezing) Qty: 8.5 3RF Abrysvo (PF) 120 mcg/0.5 mL recon soln 0.5 ml IM ONCE Qty: 1 0RF Rx Instructions: as a single dose Date of admission: 06/09/24 15:44 Primary Care Provider: UNKNOWN,DOCTOR Admitting Provider: Carlyle Beatty Attending physician on admission: Carlyle Beatty Condition: Stable
[2024-06-10] MEDS: DOCUSATE SODIUM 100 MG CAPSULE PO (16:05)
[2024-06-10 16:14] VITALS: BP 139/77; PULSE 68; RESP 16; TEMP 36.4; O2SAT 98
[2024-06-10 20:00] VITALS: BP 101/68; PULSE 80; RESP 14; TEMP 36.6; O2SAT 99
[2024-06-11] MEDS: IBUPROFEN 600 MG TABLET PO (05:18)
[2024-06-11] MEDS: ACETAMINOPHEN 325 MG TABLET 650 MG PO (05:18)
[2024-06-11] MEDS: MULTIVIT/MIN/PREN/FOL AC/IRON TABLET 1 TAB PO (07:55)
[2024-06-11] MEDS: DOCUSATE SODIUM 100 MG CAPSULE PO (07:55)
[2024-06-11] MEDS: CITALOPRAM HYDROBROMIDE 20 MG TABLET PO (07:55)
[2024-06-11 08:00] VITALS: BP 144/89; PULSE 63; RESP 18; TEMP 36.6; O2SAT 99
--- NOTE | 2024-06-11 09:40 | PC.NURSE ---
Consulted with mother concerning needs and she shared her ability to independently latch infant optimally without pain. Observed latch and it was independent and optimal. Mother is feeding appropriately for growth of infant and understands stimulating infant to eat if needed. has had appropriate feedings in the last 24 hours meets the outcomes for weight, output, blood sugar and jaundice at this time. Mom breast and bottle per her preference. Reinforced understanding of milk production (pump if giving a bottle and not to maintain supply), transition of milk, signs of adequate intake, transition of stool, prevention/relief of engorgement, plugged ducts, mastitis, responsive watching for feeding cues, community resources ([facility] referral fax[facility] to [facility] office), and when to call a provider using the resource of the feeding sheet along with the mom and baby guide. Mother voiced understanding of the information shared, is confident to continue effectively her at home, when to call for assistance, denies any additional assistance or education at this time. Reported to the Primary RN.
[2024-06-11 10:26] VITALS: BP 120/72
== END 2024-06-11 14:40 | disposition home or self-care (01) | DRG 807 ==
LOC: ANHLDR 16:26 → ANHOB2 21:56
PROVIDERS: Admitting Provider Obstetrics & Gynecology; Visit Provider Obstetrics & Gynecology
DX: O77.0 Labor and delivery complicated by meconium in amniotic fluid (principal); Z37.0 Single live birth; Z3A.39 39 weeks gestation of pregnancy; O69.81X0 Labor and delivery complicated by cord around neck, without compression, not applicable or unspecified
CPT/HCPCS: 36415; 85014; 85018; 85025; 86592; 86703; 86850; 86900; 86901; 88307; A9270; G0432; J1200; J2210; J2590; J2795; J7120